=== PATIENT | male | born 1985 | race African-American/Black ===

== ENCOUNTER 2024-11-06 06:53 | Day surgery (SDC) | payer MEDICAID ==
[~2024-11-06 06:53] MED LIST: Sodium Chloride 0.9% 10 ML Syringe FLUSH PRN
[2024-11-06] MEDS ORDERED: Midazolam 1 MG/ML 2 ML SDV IV ONE (06:54)
[2024-11-06] MEDS ORDERED: Propofol 200 MG/20 ML SDV IV ONE (06:54)
[2024-11-06] MEDS: Lactated Ringers 1,000 ML IV SCH (07:32)
== END 2024-11-06 09:24 | disposition home or self-care (01) ==
LOC: FB.SDS 06:53
PROVIDERS: ATTEND Surgery
DX: K29.50 Unspecified chronic gastritis without bleeding (principal); K29.80 Duodenitis without bleeding; K31.7 Polyp of stomach and duodenum; Z79.899 Other long term (current) drug therapy; Z87.891 Personal history of nicotine dependence
CPT/HCPCS: 00731; 43239; 88305; 88342; J2003; J2250; J2704; J7120